=== PATIENT | female | born 1965 | race Caucasian/White ===

== ENCOUNTER 2020-02-23 00:29 | Emergency (ER) | payer OTHER ==
[~2020-02-23] VITALS: Ht 157.5 cm; Wt 77.1 kg
[2020-02-23 00:33] VITALS: Ht 157.5 cm; Wt 77.1 kg
[2020-02-23 02:06] LABS: CALCIUM 9.2 mg/dL (8.5-10.1); CARBON DIOXIDE 29.5 mmol/L (21-32); CHLORIDE SERUM 102 mmol/L (98-107); CREATININE SERUM 0.8 mg/dL (0.6-1.0); GFR1 > 60 mL/min; GLUCOSE SERUM 102 mg/dL (74-106); POTASSIUM SERUM 3.5 mmol/L (3.5-5.1); SODIUM SERUM 139 mmol/L (136-145)
[2020-02-23 02:12] LABS: ALBUMIN 4.1 g/dL (3.4-5.0); ALKALINE PHOSPHATASE 113 U/L (46-116); ALT/SGPT 24 U/L (14-59); AST/SGOT 21 U/L (15-37); BILIRUBIN TOTAL 0.32 mg/dL (0.20-1.00)
[2020-02-23 02:14] LABS: TOTAL PROTEIN, SERUM 8.5 g/dL (6.4-8.2)
[2020-02-23 02:16] LABS: PLATELET COUNT 177 x10^3mcL (130-400); RED CELL DISTRIBUTION WIDTH 13.7 % (11.5-14.5)
[2020-02-23 02:18] LABS: BASOPHIL % 0 % (0-2)
[2020-02-23 03:16] VITALS: BP 141/87
== END 2020-02-23 03:17 | disposition home or self-care (01) ==
LOC: ED 00:29
PROVIDERS: Emergency Medicine
DX: M19.90 Unspecified osteoarthritis, unspecified site (principal); F41.9 Anxiety disorder, unspecified; I10 Essential (primary) hypertension; E78.00 Pure hypercholesterolemia, unspecified